=== PATIENT | female | born 1995 | race Caucasian/White ===

== ENCOUNTER 2024-08-19 15:40 | Observation (INO) | payer OTHER, SELFPAY ==
[2024-08-19] VITALS (8 sets, daily range): BP systolic 100–125; BP diastolic 59–77; BMI 27.4
[2024-08-19] MEDS: NSS 1000 IV ×2 (12:30→17:03)
[2024-08-19] MEDS: ZOFRAN 4 MG IV ×3 (12:30→18:12)
[2024-08-19] MEDS: MORPHINE SULFATE 4 MG IV (12:30)
--- NOTE | 2024-08-19 12:40 | ED.GENMED ---
History of Present Illness
General
Chief Complaint: Abdominal Symptoms
Source: patient
Exam Limitations: none
Time Seen by Provider: 08/19/24 11:44
Nursing documentation reviewed up to this point in time: agreed with
History of Present Illness
History of Present Illness:
29 y/o F with no sig pmh
here with abd cramping and diarrhea that started 4 days ago and had 2-3 days of 3-4 episodes of dairrhea with abd cramps
then last night she started vomiting
vomited x 7 total
feels dehydrated, has pain, mostly RLQ
called her PCP and sent over to r/o appe
no blood in vomit or stool
she did have subjective fevers initially which resolved
she has not had recent travel or antibiotics
Past History
Past History
ED Past Medical History: None
ED Past Surgical History: None
Social History
Tobacco: Non-smoker
Alcohol: None
Drug: None
Personal:
Living: with family
Review of Systems
Review of Systems
Allergies reviewed?: Yes
All Other Systems: Not applicable
Phy Exam
Physical Exam
Physical Exam:
GENERAL: Alert ,uncomfortable
EYE: pupils equal and reactive
NECK: Supple
ENT: o/p clr, mmm.
CARDIAC: Regular rate and rhythm .
LUNGS: Clear breath sounds bilaterally, no acute respiratory distress, no wheezes/rales/rhonchi
ABDOMEN: Soft, modertae tenderness RLQ/lower abdomen with mild voluntary guarding, no rebound
NEUROLOGICAL: Alert and oriented, no focal neuro deficits
SKIN: Warm and dry, skin intact.
MUSCULOSKELETAL: No edema, well perfused. neg luigi's sign
PSYCH: Normal and appropriate interaction.
Course
Orders/Labs/Results
Orders:
Orders
08/19/24 12:10
0.9% Sodium Chloride 1000 ml [Nss] 1,000 ml IV BOLUS
Morphine Sulfate 4 mg IV NOW STA
Ondansetron Injectable [Zofran] 4 mg IV NOW STA
08/19/24 12:11
CT Abd/Pel (IV only)-DH only Urgent
Comment:
Reason For Exam: RLQ pain, n/v/d eval appe
Test Result ONCE
08/19/24 12:35
Complete Blood Count/With Diff Urgent
Comprehensive Metabolic Panel Urgent
HCG, Serum Qualitative Screen Urgent
Lipase Urgent
Urinalysis Reflex To Culture Urgent
Date Specimen was Collected: 08/19/24
Time Specimen was Collected: 12:22
08/19/24 14:45
HYDROmorphone [Dilaudid] 0.5 mg IV NOW STA
Ondansetron Injectable [Zofran] 4 mg IV NOW STA
08/19/24 14:49
STOOL [C difficile Antigen & Toxins] Urgent
SUZANNA Source: Feces/Stool
Specimen Description:
Stool Culture Urgent
SUZANNA Source: Feces/Stool
Specimen Description:
Abnormal Lab Results
08/19/24
12:35
MCH 31.5 H pg
(27.0-31.0)
Absolute Monos (auto) 0.8 H 10^3/uL
(0.1-0.6)
Monocytes % 11.1 H %
(1.7-9.3)
Chloride 110 H mmol/L
(98-107)
08/19/24 12:35
08/19/24 12:35
Vital Signs
Initial and Last Documented VS:
Initial Vital Signs
Temp Pulse Resp BP Pulse Ox
36.7 C 77 16 112/77 98
08/19/24 10:42 08/19/24 10:42 08/19/24 10:42 08/19/24 10:42 08/19/24 10:42
Last Documented Vital Signs
Temp Pulse Resp BP Pulse Ox
36.7 C 53 16 100/59 99
08/19/24 10:42 08/19/24 13:23 08/19/24 10:42 08/19/24 13:00 08/19/24 13:30
MDM/Problems Addressed
Differential Diagnosis Includes:
enteritis; appendicitis
MDM/Problems Addressed:
diarrhea starting 3 days ago lasting 2 days with fever (only 3-4 episodes daily) and then started vomiting last night x 7
afebrile, stable vitals, pretty localized severe RLQ tendenress; wbc normal
no rf for infectious diarrhea
ct shows severely thickened small bowel loops in RLQ with mild mesenteric edema
pain returning, uncomfortable
infectious vs inflammatory
will order stool studies
? crohns?
admit due to pain control
Gi aware
*Critical Care Note
Total Time (30-74mins, 75-104mins- exclusive of procedures): Not Applicable
ED Attending Note
-
Portions of this chart may have been created with voice recognition software.� Occasional wrong word or��sound alike� substitutions may have occurred due to the inherent limitations of voice recognition software.
Discharge Plan
Departure
Patient Disposition: Admit
Date of Disposition: 08/19/24
Time of Disposition: 14:45
Admit to: Med/Surg
Presentation/result/management discussed w/ accepting MD/DO: Hospitalist
Condition: Fair
Covid-19: Not Applicable
Discharge Problem:
Enteritis
Referrals:
Carmencita Chang DO [Family Provider, Internal Medicine]
Interventions
Interventions:
*Risk Screen - Suicide Last Done: 08/19/24 12:41
*General Assessment Last Done: 08/19/24 12:41
*Neglect/Abuse Screening Last Done: 08/19/24 12:41
*ED- Fall Risk Assessment Last Done: 08/19/24 12:41
*ED COVID-19 Vaccine History Last Done: 08/19/24 12:41
WA-Jtemdu-Ryzytomzwx Assessment Last Done: 08/19/24 12:41
Discharge Date and Time
Print Language: ARGENTINE
[2024-08-19 12:48] LABS: % Basophils 0.4 % (0-2); % Eosinophils 3.4 % (0-6); % Immature Granulocytes 0.1 % (0-0.5); % Lymphocytes 21.7 % (20.5-51.1); % Monocytes 11.1 % (1.7-9.3); % Neutrophils 63.3 % (42.2-75.2); Absolute Eosinophils 0.3 10^3/uL (0-0.7); Absolute Lymphocytes 1.6 10^3/uL (1.2-3.4); Absolute Monocytes 0.8 10^3/uL (0.1-0.6); Absolute Neutrophils 4.8 10^3/uL (1.4-6.5); Hemoglobin 13.4 g/dL (12.0-16.0); Mean Corp Hgb Conc. 35.3 g/dL (33.0-37.0); Mean Corpuscular Hgb 31.5 pg (27.0-31.0); Mean Corpuscular Volume 89.4 fL (81.0-99.0); Mean Platelet Volume 9.7 fL (7.4-10.4); Nucleated Red Blood Cells % 0 %; Platelet Count 248 10^3/uL (130-400); Red Blood Cell Count 4.25 10^6/uL (4.20-5.40); Red Cell Dist. Width 11.9 % (11.5-14.5); Urine Albumin Negative (Neg - Trace); Urine Bilirubin Negative (Negative); Urine Character Clear (Clear); Urine Color Yellow; Urine Glucose Negative (Negative); Urine Ketone Negative (Negative); Urine Leukocyte Negative (Negative); Urine Nitrite Negative (Negative); Urine Occult Blood Negative (Negative); Urine Urobilinogen Negative (Neg - 1+); White Blood Cell Count 7.6 10^3/uL (4.8-10.8)
[2024-08-19 13:12] LABS: ALT (SGPT) 17 U/L (0-35); AST (SGOT) 15 U/L (14-36); Alkaline Phosphatase 41 U/L (38-126); Blood Urea Nitrogen 9 mg/dl (7-17); Calcium 9.1 mg/dl (8.4-10.2); Carbon Dioxide 24 mmol/L (22-30); Chloride 110 mmol/L (98-107); Estimated Creatinine Clearance 113 ml/min; Glucose 94 mg/dl (70-99); Potassium 4.1 mmol/L (3.5-5.1); Sodium 139 mmol/L (135-145); Total Bilirubin 0.4 mg/dl (0.2-1.3); Total Protein 6.3 g/dl (6.3-8.2); eGFR > 60.00
[2024-08-19 13:17] LABS: HCG, Serum Qualitative Screen Negative
[2024-08-19 13:25] LABS: Lipase 67 U/L (23-300)
[2024-08-19] MEDS: DILAUDID 0.5 MG IV (14:49)
--- NOTE | 2024-08-19 14:52 | HPS.HSE ---
Family Physician
-
Family Physician: Carmencita Chang
Chief Complaint
-
abdominal symptoms
History of Present Illness
Patient is a 29-year-old female with no significant past medical history who presented to [facility] ED for evaluation of abdominal pain, nausea, vomiting and diarrhea. Patient reports that abdominal pain started on Thursday evening with nausea and
diarrhea. Diarrhea was persistent Thursday - Thursday and she has had no bowel movement at all since Thursday. She reports that yesterday is when the vomiting started and lasted all day. Has not had any diarrhea or vomiting today but has been
nauseous. Patient reports intermittent subjective fevers with chills and diaphoresis. She denies any chest pain, cough, shortness of breath or urinary symptoms.
Medical History
Past Medical History
Past Medical History: Reports None
Past Surgical History: Reports None
Social History
Tobacco: Non-smoker
Alcohol: Occasional (socially )
Drug: None
Personal:
Living: With Family
Employment: Employed
Family History
Family History: Other (Father (): metastatic prostate cancer )
Allergies / Home Medications
Allergies reflects when Allergies were last updated in [employer].
Home Medications with original date entered in [employer]
Allergy/Medication List:
Allergies
Allergy/AdvReac Type Severity Reaction Status Date / Time
gluten Allergy intolerant Verified 08/19/24 10:42
Home Medications
No Meds [No Current Medications] 08/19/24
Review of Systems
-
History Source: Patient
Constitutional: Reports Fever and Chills
Abdomen/GI: Reports Abdominal Pain, Nausea, Vomiting and Diarrhea
Physical Exam
Vital Signs
Vital Signs
Temp Pulse Resp BP Pulse Ox
98.1 F 53 16 100/59 99
08/19/24 10:42 08/19/24 13:23 08/19/24 10:42 08/19/24 13:00 08/19/24 13:30
Physical Exam
General: Well Developed, Well Nourished, No Apparent Distress and Conversant
HEENT: NormoCephalic, Moist mucous membranes and Atraumatic
Respiratory: Clear
Cardiac: S1/S2 and Regular Rhythm
Breast: Deferred by me
GI: Soft, Non Distended, Tender (moderate tenderness to RLQ with palpation) and Other (hypoactive bowel sounds )
Rectal: Deferred by Provider
Genito-urinary: Deferred by me
Musculoskeletal: No Clubbing, No Cyanosis and No Edema
Skin: Warm and Dry
Neuro: Awake, Alert, AO x 3 and Nonfocal/grossly intact
Psych: Calm and Intact Judgment/Insight
Laboratory Results
-
08/19/24 12:35
08/19/24 12:35
Laboratory Results
Total Bilirubin 0.4 mg/dl (0.2-1.3) 08/19/24 12:35
AST 15 U/L (14-36) 08/19/24 12:35
ALT 17 U/L (0-35) 08/19/24 12:35
Alkaline Phosphatase 41 U/L (38-126) 08/19/24 12:35
Lipase 67 U/L (23-300) 08/19/24 12:35
Data Reviewed
-
CT Scan: Report Reviewed by me (Abd/Pel: 1. Several thickened/inflamed small bowel obstruction the right lower quadrant with mild mesenteric edema and small amount of free fluid within the pelvis. Findings compatible with infectious or
inflammatory enteritis. Questionable haustra thickening within the ascending and transverse co)
Lab Data: Labs Reviewed by me
Impression/Plan
-
IMPRESSION/PLAN:
#nausea, vomiting, diarrhea with RLQ abdominal pain likely 2/2 viral enteritis
Abd/Pel CT: 1. Several thickened/inflamed small bowel loops in the right lower quadrant with mild mesenteric edema and small amount of free fluid within the pelvis. Findings compatible with
infectious or inflammatory enteritis.
2. Unremarkable appendix.
3. Additional findings above.
- Admit to med/surg
- IVF
- supportive care
- clear liquid diet advance as tolerated
Code status: full code
DVT prophylaxis: Lovenox sq
--- NOTE | 2024-08-19 15:29 | W.PN.UPDATE ---
Update Note
Progress Note Update
This is an addendum to H&P written by Mercedes Márquez on 08/19/2024. Patient seen and examined independently with [employer].
29-year-old female without medical history presenting with abdominal cramping and diarrhea 4 days ago now improved with vomiting last night. Had oysters 5 days ago. Right lower quadrant abdominal pain. Labs normal. CT abdomen pelvis shows severe
thickened/inflamed small bowel loops in the right lower quadrant with mild mesenteric edema and small amount of free fluid.
Presentation consistent with infectious enteritis. Clear liquid diet, IV fluids, check stool culture, norovirus, C. difficile.
--- NOTE | 2024-08-19 15:49 | CON.GI ---
Addendum entered and electronically signed by Sendy Christine MD 08/20/24 10:33:
Correction to my note below
The PA's note was reviewed and I agree with the note.
Original Note:
Consultation
-
Date/Time Consultation Requested: 08/19/24 1520
Date/Time Consultation Performed: 08/19/24 1600
Requesting Provider: Dr. Mendez
Performing Provider: Dr Christine / Arely Clifton PA-C
Reason for Consultation: diarrhea, abdominal pain
Medical History
Chief Complaint / HPI
Chief Complaint: abdominal pain, diarrhea
History of Present Illness:
This is a 29 year old female in good health who presented to the ER with complaints of diarrhea, nausea, subjective fever and chills which started 4 days ago. Diarrhea described as loose, non-bloody, was occurring up to 5 times/day. She had eaten
oysters the day before. No sick contacts, travel or recent antibiotics. Last night started vomiting. Pain worsened today. She is not able to eat anything due to abdominal pain, worse in the right lower quadrant. Her PCP advised her to come to the ER
to rule out appendicitis. Labs are unremarkable, with no leukocytosis. CT imaging shows 'several thickened/inflamed small bowel loops in the right lower quadrant with mild mesenteric edema and small amount of free fluid within the pelvis. Findings
compatible with infectious or inflammatory enteritis.' Appendix is unremarkable. Patient states her baseline bowel habits were 'pretty regular,' with formed bowel movements 1-2x daily, but also notes that she had been having some mildly increased
diarrhea for the past 6 months. She did admit to some dietary changes, states she started on the [employer]iv[employer] diet in March which did cause diarrhea. She did stop that diet and now eating whole foods. There is no family history of IBD.
Past Medical History
Past Medical History: None
Past Surgical History: None
Social History
Tobacco: Other (occasionally smokes)
Alcohol: Occasional
Drug: None
Personal:
Living: With Family
Employment: Employed
Family History
Family History: Reviewed & Not Pertinent (no family history of inflammatory bowel disease or GI malignancies)
Allergies / Home Medications
Allergy/AdvReac Type Severity Reaction Status Date / Time
gluten Allergy intolerant Verified 08/19/24 10:42
�Medication �Instructions �Recorded
No Meds [No Current Medications] 08/19/24
Review of Systems
-
History Source: Patient
All other systems: A 12 pt ROS was Negative except as stated above in HPI
Vital Signs
Temp Pulse Resp BP Pulse Ox
98.1 F 53 16 100/59 99
08/19/24 10:42 08/19/24 13:23 08/19/24 10:42 08/19/24 13:00 08/19/24 13:30
Physical Exam
Exam
General: Well Developed, Well Nourished and No Apparent Distress
Respiratory: Clear
Cardiac: Regular Rhythm
GI: Soft, Non Distended, Normal Bowel Sounds and Tender (+moderate tenderness of the RLQ)
Skin: Warm and Dry
Neuro: AO x 3
Psych: Calm
Results
WBC 7.6 10^3/uL (4.8-10.8) 08/19/24 12:35
Hgb 13.4 g/dL (12.0-16.0) 08/19/24 12:35
Hct 38.0 % (37.0-47.0) 08/19/24 12:35
MCV 89.4 fL (81.0-99.0) 08/19/24 12:35
Plt Count 248 10^3/uL (130-400) 08/19/24 12:35
Absolute Neuts (auto) 4.8 10^3/uL (1.4-6.5) 08/19/24 12:35
Sodium 139 mmol/L (135-145) 08/19/24 12:35
Potassium 4.1 mmol/L (3.5-5.1) 08/19/24 12:35
Chloride 110 mmol/L (98-107) H 08/19/24 12:35
Carbon Dioxide 24 mmol/L (22-30) 08/19/24 12:35
BUN 9 mg/dl (7-17) 08/19/24 12:35
Creatinine 0.7 mg/dL (0.6-1.0) 08/19/24 12:35
Calcium 9.1 mg/dl (8.4-10.2) 08/19/24 12:35
Total Bilirubin 0.4 mg/dl (0.2-1.3) 08/19/24 12:35
AST 15 U/L (14-36) 08/19/24 12:35
ALT 17 U/L (0-35) 08/19/24 12:35
Alkaline Phosphatase 41 U/L (38-126) 08/19/24 12:35
Lipase 67 U/L (23-300) 08/19/24 12:35
Diagnostic Image Results:
CT Abdomen/Pelvis 08/19/24:
1. Several thickened/inflamed small bowel loops in the right lower quadrant with mild mesenteric edema and small amount of free fluid within the pelvis. Findings compatible with infectious or inflammatory enteritis.
2. Unremarkable appendix
Assessment / Plan
-
29 year old female with no significant past medical history with diarrhea, nausea, vomiting and right lower quadrant abdominal pain for the past 4 days. Symptoms started after eating oysters. No sick contacts, recent travel or antibiotics. CT
abdomen/pelvis showing several thickened/inflamed small bowel loops in the right lower quadrant with mild mesenteric edema and small amount of free fluid within the pelvis, compatible with infectious or inflammatory enteritis.
IMPRESSION / PLAN:
Acute gastroenteritis - suspect infectious in nature
- stool studies to rule out infectious etiology
- continue IV fluids
- antiemetics and pain medications as per hospitalist
- OK for clear liquids as tolerated
- agree on holding antibiotics, pending stool cultures, but will consider abx starting if her symptoms worsen
We will follow.
-
-
Thank you for consultation and allowing me to participate in the patient's care. Please call the consulting [facility] GI physician during the after hours with any questions or concerns.
[2024-08-19] MEDS: MORPHINE SULFATE 2 MG IV (18:12)
[2024-08-19] MEDS: ULTRAM 50 MG PO (20:46)
[2024-08-19] MEDS: MYLICON 80 MG PO (22:18)
[2024-08-20] MEDS: NSS 1000 IV ×2 (03:12→15:24)
[2024-08-20] MEDS: ZOFRAN 4 MG IV ×2 (05:23→12:12)
[2024-08-20 06:00] VITALS: BMI 27.4
[2024-08-20 07:00] VITALS: BP 103/60
[2024-08-20 07:17] LABS: Blood Urea Nitrogen 8 mg/dl (7-17); Calcium 8.6 mg/dl (8.4-10.2); Carbon Dioxide 24 mmol/L (22-30); Chloride 109 mmol/L (98-107); Estimated Creatinine Clearance 113 ml/min; Glucose 90 mg/dl (70-99); Potassium 4.3 mmol/L (3.5-5.1); Sodium 138 mmol/L (135-145); eGFR > 60.00
--- NOTE | 2024-08-20 07:33 | W.PN.HOSP.TC ---
Today's Communication/Plan
-
Start antibiotics
Assessment / Plan
Assessment / Plan
Impression:
29-year-old female without medical history presenting with abdominal cramping and diarrhea 4 days ago now improved with vomiting last night. Had oysters 5 days ago. Right lower quadrant abdominal pain. Labs normal. CT abdomen pelvis shows severe
thickened/inflamed small bowel loops in the right lower quadrant with mild mesenteric edema and small amount of free fluid.
Presentation consistent with infectious enteritis. Clear liquid diet, IV fluids, check stool culture, norovirus, C. difficile came back negative.
Assessment/plan:
Acute gastroenteritis.
CT scan shows: 1. Several thickened/inflamed small bowel loops in the right lower quadrant with mild mesenteric edema and small amount of free fluid within the pelvis. Findings compatible with
infectious or inflammatory enteritis.
2. Unremarkable appendix.
3. Additional findings above.
Appreciate GI input.
Continue IV fluid.
No further diarrhea.
GI recommending start antibiotic in form of Levaquin and Flagyl
CODE STATUS: Full code
DVT prophylaxis: Lovenox
Diet: clear diet
Family communication: Discussed with family at bedside
Disposition: Start antibiotic
Total time spent on today's encounter was 65 minutes which included time spent in counseling the patient/family regarding diagnosis and treatment plan as listed above, goals of care, and symptom management. Case was discussed with nursing staff,
specialists, and care coordinators/case management. All labs and imaging personally reviewed by me. Remainder the time spent in detailed review of previous records, lab data, imaging, and other medical provider documentation.
Anticipated Discharge: Within 24 hours
Subjective/Interval History
-
Date of Service: August 20, 2024
Patient seen and examined at bedside, family at bedside.
Still complaining of pain and spasm.
GI recommending to start antibiotic in form of Levaquin and Flagyl.
Objective Data
-
Labs:
Laboratory Results
08/20/24
06:44
Sodium 138
Potassium 4.3
Chloride 109 H
Carbon Dioxide 24
BUN 8
Creatinine 0.7
Glucose 90
Calcium 8.6
Vital Signs:
Vital Signs
Temp Pulse Resp BP Pulse Ox
97.9 F 58 14 106/62 96
08/19/24 23:29 08/19/24 23:29 08/19/24 23:29 08/19/24 23:29 08/19/24 23:29
I&O
08/19/24 08/20/24 08/21/24
06:59 06:59 06:59
Intake Total 1320 / 1320
Balance 1320 / 1320
Physical Exam
-
General: Well Developed, Well Nourished, No Apparent Distress and Comfortable
HEENT: Normocephalic, Atraumatic, Moist Mucous Membranes, No Ptosis, PERRLA and Nose Appears Normal
Respiratory: Clear to Auscultation and Non Labored Respirations
Cardiac: Regular Rhythm and S1/S2
Breast: Deferred by me
GI: Nondistended, Normal Bowel Sounds and Tender
Genito-urinary: No Costovertebral Tender
Musculoskeletal: No Clubbing, No Cyanosis and No Edema
Skin: Warm
Neuro: Awake, Alert, Oriented, AO x 3 and No Motor Deficits
Psych: Calm
Data Reviewed
-
Diagnostic Radiology: Image personally visualized and interpreted and Report Reviewed by me
CT Scan: Image personally visualized and interpreted and Report Reviewed by me
Ultrasound: Image personally visualized and interpreted and Report Reviewed by me
MRI: Image personally visualized and interpreted and Report Reviewed by me
Medical Tests (Nuc Med, Echo etc): Image personally visualized and interpreted and Report Reviewed by me
Labs: Labs Reviewed by me
Old Records: Reviewed
[2024-08-20] MEDS: ULTRAM 50 MG PO (08:10)
--- NOTE | 2024-08-20 10:01 | W.PN.GI.CBS2 ---
Today's Communication / Plan
-
will start abx
CLD as tolerated
Assessment / Plan
-
29 year old female with no significant past medical history with diarrhea, nausea, vomiting and right lower quadrant abdominal pain for the past 4 days. Symptoms started after eating oysters. No sick contacts, recent travel or antibiotics. CT
abdomen/pelvis showing several thickened/inflamed small bowel loops in the right lower quadrant with mild mesenteric edema and small amount of free fluid within the pelvis, compatible with infectious or inflammatory enteritis.
IMPRESSION / PLAN:
acute onset of right lower quadrant abdominal pain with multiple episodes of diarrhea, nausea and vomiting most likely related to infectious etiology there is evidence of enteritis on CT doubt IBD given acute onset of symptoms
Stool cultures are pending
She had worsening pain with nausea vomiting last night worried about possible developing partial small bowel obstruction related to significant inflammation
Continue clear liquids as tolerated will hold on advancing diet for now
We also start her on antibiotics with levofloxacin and Flagyl pending stool cultures
Will also get CRP
discussed with Dr. Jama will also get a KUB later today
Will need repeat CT versus CTE in a couple of weeks to check for resolution and if not improved will need a colonoscopy to rule out Crohn's
Subjective
Subjective
Date of Service: August 20, 2024
She had severe pain 9/10 last night and could not pass flatus and felt bloated. She did take some Gas-X and felt slightly better she also received morphine but she says that she felt more nauseous with that, she did have an episode of vomiting also
last night. Remains afebrile
Objective
Data Reviewed
Laboratory Data:
Laboratory Results
08/19/24 12:35
08/20/24 06:44
Laboratory Results
Total Bilirubin 0.4 mg/dl (0.2-1.3) 08/19/24 12:35
AST 15 U/L (14-36) 08/19/24 12:35
ALT 17 U/L (0-35) 08/19/24 12:35
Alkaline Phosphatase 41 U/L (38-126) 08/19/24 12:35
Lipase 67 U/L (23-300) 08/19/24 12:35
Vital Signs and I&O:
Vital Signs
Temp Pulse Resp BP Pulse Ox
98.4 F 60 16 103/60 96
08/20/24 07:00 08/20/24 07:00 08/20/24 07:00 08/20/24 07:00 08/20/24 07:00
I&O
08/19/24 08/20/24 08/21/24
06:59 06:59 06:59
Intake Total 1320 / 1320
Balance 1320 / 1320
Physical Exam
Physical Exam
Cardiology: Normal Sinus Rhythm
Pulmonary: Clear
GI: Soft, Non Distended, Tender (in RLQ) and Normal Bowel Sounds
[2024-08-20] MEDS: FLAGYL 500 MG 100 IV ×2 (10:32→17:22)
[2024-08-20] MEDS: BENTYL 10 MG PO ×3 (12:14→21:29)
[2024-08-20] MEDS: LEVAQUIN 100 IV (12:14)
--- NOTE | 2024-08-20 12:59 | CM ---
Patient seen at bedside.
IA completed
OBS status-form explained & signed. In chart
Lives in a 2 story home with , 3 steps to enter, flight to bedroom
PLOF: independent
Denies DME
Denies VN/Rehab
Denies insecurities
PCP: Carmencita Chang
Pharmacy: [facility] [address], [place]
PLAN: home, no needs
[2024-08-20 15:00] VITALS: BP 99/60
[2024-08-20] MEDS: TYLENOL 650 MG PO (17:29)
[2024-08-20 23:38] VITALS: BP 99/62
[2024-08-21] MEDS: NSS IV (02:02)
[2024-08-21] MEDS: FLAGYL 500 MG 100 IV ×2 (02:58→11:13)
[2024-08-21] MEDS: MYLICON 80 MG PO (05:53)
[2024-08-21 05:56] LABS: Hemoglobin 11.8 g/dL (12.0-16.0); Mean Corp Hgb Conc. 34.7 g/dL (33.0-37.0); Mean Corpuscular Hgb 31.7 pg (27.0-31.0); Mean Corpuscular Volume 91.4 fL (81.0-99.0); Mean Platelet Volume 10.5 fL (7.4-10.4); Platelet Count 208 10^3/uL (130-400); Red Blood Cell Count 3.72 10^6/uL (4.20-5.40); Red Cell Dist. Width 11.7 % (11.5-14.5); White Blood Cell Count 5.8 10^3/uL (4.8-10.8)
[2024-08-21 06:28] LABS: Blood Urea Nitrogen 8 mg/dl (7-17); Carbon Dioxide 24 mmol/L (22-30); Chloride 110 mmol/L (98-107); Estimated Creatinine Clearance 99 ml/min; Glucose 88 mg/dl (70-99); Potassium 4.2 mmol/L (3.5-5.1); Sodium 138 mmol/L (135-145); eGFR > 60.00
[2024-08-21 07:00] VITALS: BP 102/64
[2024-08-21] MEDS: BENTYL 10 MG PO ×2 (08:18→12:43)
--- NOTE | 2024-08-21 09:07 | W.PN.GI.CBS2 ---
Today's Communication / Plan
-
LRD
MOM
Dulcolax supp
Assessment / Plan
-
29 year old female with no significant past medical history with diarrhea, nausea, vomiting and right lower quadrant abdominal pain for the past 4 days. Symptoms started after eating oysters. No sick contacts, recent travel or antibiotics. CT
abdomen/pelvis showing several thickened/inflamed small bowel loops in the right lower quadrant with mild mesenteric edema and small amount of free fluid within the pelvis, compatible with infectious or inflammatory enteritis.
IMPRESSION / PLAN:
acute onset of right lower quadrant abdominal pain with multiple episodes of diarrhea, nausea and vomiting most likely related to infectious etiology there is evidence of enteritis on CT doubt IBD given acute onset of symptoms
Stool cultures are pending, C. difficile negative
KUB 5/3 negative for obstruction1
CRP elevated at 22.9
Will give milk of magnesia and a suppository today since she feels constipated and unable to pass flatus
Will advance diet to low residue diet
Okay to DC home later today if she tolerates diet with no worsening pain
Could switch her antibiotics to oral antibiotic with Levaquin and Flagyl for 7 days if DC today
Will need repeat CT versus CTE in a couple of weeks to check for resolution and if not improved will need a colonoscopy to rule out Crohn's
discussed with Dr. Jama
also DW her mom yesterday
Subjective
Subjective
Date of Service: August 21, 2024
She had a small bowel movement yesterday which she said was hard and had to strain and a small amount of blood in the stool, abdominal pain is improving. She tolerated full liquids with no nausea or vomiting last night,
Objective
Data Reviewed
Laboratory Data:
Laboratory Tests
08/20/24
06:44
C-Reactive Protein 22.90 H
Laboratory Results
08/21/24 04:34
08/21/24 04:34
Laboratory Results
Total Bilirubin 0.4 mg/dl (0.2-1.3) 08/19/24 12:35
AST 15 U/L (14-36) 08/19/24 12:35
ALT 17 U/L (0-35) 08/19/24 12:35
Alkaline Phosphatase 41 U/L (38-126) 08/19/24 12:35
Lipase 67 U/L (23-300) 08/19/24 12:35
Vital Signs and I&O:
Vital Signs
Temp Pulse Resp BP Pulse Ox
98.2 F 48 18 102/64 98
08/21/24 07:00 08/21/24 07:00 08/21/24 07:00 08/21/24 07:00 08/21/24 07:00
I&O
08/20/24 08/21/24 08/22/24
06:59 06:59 06:59
Intake Total 1320 / 1320 1140 / 1140
Balance 1320 / 1320 1140 / 1140
Physical Exam
Physical Exam
Cardiology: Normal Sinus Rhythm
Pulmonary: Clear
GI: Soft, Non Distended, Tender (Tender in the right lower quadrant) and Normal Bowel Sounds
[2024-08-21] MEDS: DULCOLAX 10 MG RECTAL (10:05)
[2024-08-21] MEDS: MILK OF MAGNESIA 30 ML PO (11:13)
[2024-08-21] MEDS: LEVAQUIN 100 IV (11:19)
--- NOTE | 2024-08-21 12:54 | W.PN.HOSP.TC ---
Today's Communication/Plan
-
Will be discharged home today.
Assessment / Plan
Assessment / Plan
Impression:
29-year-old female without medical history presenting with abdominal cramping and diarrhea 4 days ago now improved with vomiting last night. Had oysters 5 days ago. Right lower quadrant abdominal pain. Labs normal. CT abdomen pelvis shows severe
thickened/inflamed small bowel loops in the right lower quadrant with mild mesenteric edema and small amount of free fluid.
Presentation consistent with infectious enteritis. Clear liquid diet, IV fluids, check stool culture, norovirus, C. difficile came back negative.
GI recommending starting IV antibiotics in the form of Levaquin and Flagyl.
Advance diet to low residual diet and patient tolerated.
Will be discharged home today.
Assessment/plan:
Acute gastroenteritis.
CT scan shows: 1. Several thickened/inflamed small bowel loops in the right lower quadrant with mild mesenteric edema and small amount of free fluid within the pelvis. Findings compatible with
infectious or inflammatory enteritis.
2. Unremarkable appendix.
3. Additional findings above.
Appreciate GI input.
Continue IV fluid.
No further diarrhea.
GI recommending starting IV antibiotics in the form of Levaquin and Flagyl.
Advanced diet to low residual diet and patient tolerated.
Will be discharged home today.
CODE STATUS: Full code
DVT prophylaxis: Lovenox
Diet: clear diet
Family communication: Discussed with family at bedside
Disposition: Will be discharged home today.
Total time spent on today's encounter was 65 minutes which included time spent in counseling the patient/family regarding diagnosis and treatment plan as listed above, goals of care, and symptom management. Case was discussed with nursing staff,
specialists, and care coordinators/case management. All labs and imaging personally reviewed by me. Remainder the time spent in detailed review of previous records, lab data, imaging, and other medical provider documentation.
Anticipated Discharge: Today
Subjective/Interval History
-
Date of Service: August 21, 2024
Patient seen and examined at bedside, was having constipation in the morning which improved with Dulcolax suppository and milk of magnesia.
Denies any chest pain or shortness of breath, advance diet and can be discharged home if tolerates.
Objective Data
-
Labs:
Laboratory Results
08/21/24
04:34
WBC 5.8
Hgb 11.8 L
Hct 34.0 L
Plt Count 208
Sodium 138
Potassium 4.2
Chloride 110 H
Carbon Dioxide 24
BUN 8
Creatinine 0.8
Glucose 88
Calcium 9.0
Vital Signs:
Vital Signs
Temp Pulse Resp BP Pulse Ox
98.2 F 48 18 102/64 98
08/21/24 07:00 08/21/24 07:00 08/21/24 07:00 08/21/24 07:00 08/21/24 07:00
I&O
08/20/24 08/21/24 08/22/24
06:59 06:59 06:59
Intake Total 1320 / 1320 1140 / 1140
Balance 1320 / 1320 1140 / 1140
Physical Exam
-
General: Well Developed, Well Nourished, No Apparent Distress and Comfortable
HEENT: Normocephalic, Atraumatic, Moist Mucous Membranes, No Ptosis, PERRLA and Nose Appears Normal
Respiratory: Clear to Auscultation and Non Labored Respirations
Cardiac: Regular Rhythm and S1/S2
Breast: Deferred by me
GI: Nondistended, Normal Bowel Sounds and Tender
Genito-urinary: No Costovertebral Tender
Musculoskeletal: No Clubbing, No Cyanosis and No Edema
Skin: Warm
Neuro: Awake, Alert, Oriented, AO x 3 and No Motor Deficits
Psych: Calm
Data Reviewed
-
Diagnostic Radiology: Image personally visualized and interpreted and Report Reviewed by me
CT Scan: Image personally visualized and interpreted and Report Reviewed by me
Ultrasound: Image personally visualized and interpreted and Report Reviewed by me
MRI: Image personally visualized and interpreted and Report Reviewed by me
Medical Tests (Nuc Med, Echo etc): Image personally visualized and interpreted and Report Reviewed by me
Labs: Labs Reviewed by me
Old Records: Reviewed
--- NOTE | 2024-08-21 13:00 | W.DCSUMMARY ---
Discharge Summary
Discharge Data
Date of Admission: 08/19/24
Date of Discharge: 08/21/24
-
Pending Results: No
Hospital Course
Hospital course
29-year-old female without medical history presenting with abdominal cramping and diarrhea 4 days ago now improved with vomiting last night. Had oysters 5 days ago. Right lower quadrant abdominal pain. Labs normal. CT abdomen pelvis shows severe
thickened/inflamed small bowel loops in the right lower quadrant with mild mesenteric edema and small amount of free fluid.
Presentation consistent with infectious enteritis. Clear liquid diet, IV fluids, check stool culture, norovirus, C. difficile came back negative.
GI recommending starting IV antibiotics in the form of Levaquin and Flagyl.
Advance diet to low residual diet and patient tolerated.
Will be discharged home today.
During hospitalization patient was treated from the following
Acute gastroenteritis.
CT scan shows: 1. Several thickened/inflamed small bowel loops in the right lower quadrant with mild mesenteric edema and small amount of free fluid within the pelvis. Findings compatible with
infectious or inflammatory enteritis.
2. Unremarkable appendix.
3. Additional findings above.
Appreciate GI input.
Continue IV fluid.
No further diarrhea.
GI recommending starting IV antibiotics in the form of Levaquin and Flagyl.
Advanced diet to low residual diet and patient tolerated.
Will be discharged home today.
CODE STATUS: Full code
DVT prophylaxis: Lovenox
Diet: clear diet
Family communication: Discussed with family at bedside
Disposition: Will be discharged home today.
Total time spent on today's encounter was 40 minutes which included time spent in counseling the patient/family regarding diagnosis and treatment plan as listed above, goals of care, and symptom management. Case was discussed with nursing staff,
specialists, and care coordinators/case management. All labs and imaging personally reviewed by me. Remainder the time spent in detailed review of previous records, lab data, imaging, and other medical provider documentation.
Anticipated Discharge: Today
Discharge Plan
-
Patient Disposition: Home (Routine Discharge)
Discharge Diagnosis/Procedures: Acute gastroenteritis
Diet: Low Residue
Activity: As tolerated
Referrals:
Carmencita Chang DO [Family Provider, Internal Medicine]
Prescriptions:
New
acetaminophen 325 mg Tablet
650 mg PO Q4HPRN PRN (Reason: mild pain/ALFARO/temp> 100.4F) Qty: 0 0RF
levofloxacin 500 mg tablet
500 mg PO DAILY 7 Days Qty: 7 0RF
metronidazole 500 mg tablet
500 mg PO Q8H 7 Days Qty: 21 0RF
Discharge Orders:
Discharge Patient (As Directed); Ordered 08/21/24
Ordered By: Evita De León
Discharge Date and Time
Print Language: BARBADIAN
--- NOTE | 2024-08-21 13:08 | CM ---
Patient seen at bedside with
Discharge today
Home, no needs
PLAN; home, no needs
to transport
[2024-08-21 14:03] VITALS: BP 111/61
== END 2024-08-21 14:11 | disposition home or self-care (01) ==
LOC: 3 WEST ACU 15:40
PROVIDERS: Nurse Practitioner Family; Physician Assistant; ADMITTING PHYSICIAN Hospitalist; ATTENDING PHYSICIAN General Practice; EMERGENCY PHYSICIAN Student in an Organized Health Care Education/Training Program; FAMILY PHYSICIAN Internal Medicine; OTHER PHYSICIAN Internal Medicine Gastroenterology
DX: A08.4 Viral intestinal infection, unspecified (principal); R10.9 Unspecified abdominal pain
CPT/HCPCS: 74018; 74177; 80048; 80053; 81003; 83690; 84703; 85025; 85027; 86140; 87045; 87046; 87077; 87324; 87427; 87449; 96361; 96374; 96375; 96376; 99284; G0378; Q9967

== ENCOUNTER 2024-08-24 16:28 | Inpatient (IN) | payer OTHER, SELFPAY ==
[2024-08-24] VITALS (10 sets, daily range): BP systolic 95–115; BP diastolic 50–78; BMI 27.3; BMI 26.7
--- NOTE | 2024-08-24 11:17 | ED.GENMED ---
History of Present Illness
General
Chief Complaint: Abdominal Symptoms
Source: patient and records
Exam Limitations: none
Time Seen by Provider: 08/24/24 10:25
Nursing documentation reviewed up to this point in time: agreed with
History of Present Illness
History of Present Illness:
29-year-old female with no reported chronic medical issues presents to the emergency department for evaluation of continued diarrhea and abdominal discomfort in the setting of recently diagnosed enteritis; she also is complaining of occasional
palpitations. Patient was admitted to this hospital 08/19 until resented with abdominal pain and had CT which showed enteritis. Her initial presenting complaint was nausea with vomiting and abdominal pain. Nausea improved and she still had
some vague abdominal pain prior to discharge but she was ultimately sent home; she was discharged on levofloxacin and metronidazole. She did well for the first 12 hours after discharge but woke up the next day with continued pain and started with
profuse watery diarrhea; diarrhea mixed with bright red blood. She has had profuse diarrhea since then. Abdominal pain is generally improved since discharge but has not resolved. She has not had any additional vomiting. She has not had
fever�highest temperature was yesterday 100 �F. In addition to her continued GI symptoms patient says she has been having labile heart rate since discharge�she says sometimes will go as high as 150s particularly with light activity. She has had
palpitations. Denies chest pain or dizziness, shortness of breath. She denies any other complaints.
Past History
Past History
ED Past Medical History: None
ED Past Surgical History: None
Social History
Tobacco: Non-smoker
Alcohol: None
Drug: None
Personal:
Living: with family
Review of Systems
Review of Systems
All Other Systems: ROS reviewed and negative except as documented in HPI and ROS
Constitutional: Denies fever or chills
Respiratory: Denies trouble breathing
Cardiac: Reports palpitations; Denies chest pain
ABD/GI: Reports abdominal pain, nausea, diarrhea and bloody stools; Denies vomiting
: Denies flank pain
Musculoskeletal: Denies neck pain or back pain
Neurological: Denies dizzy or headache
Phy Exam
Physical Exam
Physical Exam:
General: Awake, alert, oriented x3; no acute distress
Head: Normocephalic, atraumatic
Eyes: Conjunctiva normal, sclera anicteric
Throat: Airway intact, dry mucous membranes
Neck: Trachea midline, supple without meningismus
Lungs: Clear to auscultation bilaterally, no wheezing, rales, rhonchi
Heart: Regular rate and rhythm, no murmurs, gallops, or rubs
Abd: Soft, non distended, minimally tender right upper and lower abdomen, no peritoneal sign, no masses
Back: No CVA tenderness
Neuro: No gross deficits
Skin: no rash in area of concern
Extremities: Warm well-perfused
Scores
Heart Failure Risk
Heart Failure Risk Score: Not Applicable
Heart Score for Chest Pain Patients
STEMI patient?: Not applicable
Withdrawal Assessment of Alcohol
Withdrawal Assessment Completed?: Not applicable
Course
Orders/Labs/Results
Orders:
Orders
08/24/24 11:03
Electrocardiogram (*1) Urgent
Reason for Study: Palpitations
EKG- Treatment ONCE
Test Result ONCE
08/24/24 11:06
0.9% Sodium Chloride 1000 ml [Nss] 1,000 ml IV BOLUS
08/24/24 11:19
GASTROINTESTINAL CONSULT Urgent
Consulting Provider: Sendy Christine
Was physician already notified: Yes
08/24/24 11:49
Complete Blood Count/With Diff Urgent
Comprehensive Metabolic Panel Urgent
HCG, Serum Qualitative Screen Urgent
08/24/24 13:52
Stool Culture Urgent
SUZANNA Source: Feces/Stool
Specimen Description:
08/24/24 13:56
C DIFF [C difficile Antigen & Toxins] Urgent
SUZANNA Source: Feces/Stool
Specimen Description:
08/24/24 14:15
0.9% Sodium Chloride 1000 ml [Nss] 1,000 ml IV 100 mls/hr
08/24/24 14:50
CR Obstruct Series W/pa Chest Urgent
Comment:
Reason For Exam: abdominal pain
Abnormal Lab Results
08/24/24
11:49
MCH 32.0 H pg
(27.0-31.0)
Eosinophils % 6.4 H %
(0-6)
Chloride 109 H mmol/L
(98-107)
AST 37 H U/L
(14-36)
ALT 44 H U/L
(0-35)
08/24/24 11:49
08/24/24 11:49
Vital Signs
Initial and Last Documented VS:
Initial Vital Signs
Temp Pulse Resp BP Pulse Ox
36.7 C 95 16 108/78 100
08/24/24 10:05 08/24/24 10:05 08/24/24 10:05 08/24/24 10:05 08/24/24 10:05
Last Documented Vital Signs
Temp Pulse Resp BP Pulse Ox
36.7 C 47 12 104/66 100
08/24/24 10:05 08/24/24 13:00 08/24/24 13:00 08/24/24 13:00 08/24/24 13:00
MDM/Problems Addressed
Differential Diagnosis Includes:
GI symptoms: Enteritis, colitis, appendicitis
Palpitations/tachycardia: Dehydration, dysrhythmia, PVCs
MDM/Problems Addressed:
29-year-old female who was just admitted with enteritis presents with profuse diarrhea and continued abdominal pain since discharge. She has also had occasional palpitations and labile heart rate. Vitals and exam as above. Suspect continued
symptoms from known enteritis; palpitations/tachycardia sound like they could be related to dehydration in the setting of her GI symptoms. Will plan to send labs including a CBC and a CMP, check hCG. Will check cardiogram. Provide fluids.
Monitor on telemetry. Case discussed with gastroenterology for consultation.
Labs reviewed: Fortunately hemoglobin normal, CMP no clinically significant abnormalities. hCG negative. GI consult pending.
GI evaluated the bedside�recommending admission, stool studies ordered. Hold antibiotics for now. If C. difficile positive may need colonoscopy. Order placed for obstruction series but hold on repeat CT. Case was discussed with hospitalist for
admission.
*Radiology
Radiology exam reviewed: radiology read reviewed (Reviewed radiology read from recent CT)
*Pulse Oximetry
Patient hypoxic: no
*EKG
Interpreted by ED Provider?: Yes
Heart Rate: 54
Rate: bradycardiac
Rhythm: sinus
[place]: normal axis
Interval: normal interval
QRS Pattern: normal QRS
Ischemia: no ischemia
*Critical Care Note
Total Time (30-74mins, 75-104mins- exclusive of procedures): Not Applicable
Data Reviewed
Review of Other/Old Records Reveals: Labs, Records, Progress Notes and Discharge Summary
Source: patient, records and significant other
Patient Management
Discussion with other providers: Hospitalist (Discussed with hospitalist) and [employer] (Discussed with gastroenterology)
Escalation/DeEscalation of care consider admission/obs:
Admission indicated
ED Attending Note
-
Portions of this chart may have been created with voice recognition software.� Occasional wrong word or��sound alike� substitutions may have occurred due to the inherent limitations of voice recognition software.
Discharge Plan
Departure
Patient Disposition: Admit
Date of Disposition: 08/24/24
Time of Disposition: 14:51
Admit to doctor: Kyle
Presentation/result/management discussed w/ accepting MD/DO: Hospitalist
Discharge Problem:
Enteritis, Bloody diarrhea
Prescriptions:
No Action
acetaminophen 325 mg Tablet
650 mg PO Q4HPRN PRN (Reason: mild pain/ALFARO/temp> 100.4F) Qty: 0 0RF
levofloxacin 500 mg tablet
500 mg PO DAILY 7 Days Qty: 7 0RF
metronidazole 500 mg tablet
500 mg PO Q8H 7 Days Qty: 21 0RF
Referrals:
Carmencita Chang, DO [Family Provider, Internal Medicine]
Interventions
Interventions:
*Risk Screen - Suicide Last Done: 08/24/24 11:47
*General Assessment Last Done: 08/24/24 11:47
*Neglect/Abuse Screening Last Done: 08/24/24 11:47
*ED- Fall Risk Assessment Last Done: 08/24/24 11:47
*ED COVID-19 Vaccine History Last Done: 08/24/24 11:47
XL-Fihtpj-Lbcgsuisqc Assessment Last Done: 08/24/24 12:12
Discharge Date and Time
Print Language: MALTESE
[2024-08-24] MEDS: NSS 1000 IV ×2 (11:55→14:23)
[2024-08-24 12:13] LABS: % Basophils 0.9 % (0-2); % Eosinophils 6.4 % (0-6); % Immature Granulocytes 0.1 % (0-0.5); % Lymphocytes 35.7 % (20.5-51.1); % Monocytes 6.2 % (1.7-9.3); % Neutrophils 50.7 % (42.2-75.2); Absolute Basophils 0.1 10^3/uL (0-0.2); Absolute Eosinophils 0.5 10^3/uL (0-0.7); Absolute Lymphocytes 2.8 10^3/uL (1.2-3.4); Absolute Monocytes 0.5 10^3/uL (0.1-0.6); Hematocrit 41.9 % (37.0-47.0); Hemoglobin 14.8 g/dL (12.0-16.0); Mean Corp Hgb Conc. 35.3 g/dL (33.0-37.0); Mean Corpuscular Volume 90.7 fL (81.0-99.0); Mean Platelet Volume 9.7 fL (7.4-10.4); Nucleated Red Blood Cells % 0 %; Platelet Count 342 10^3/uL (130-400); Red Blood Cell Count 4.62 10^6/uL (4.20-5.40); Red Cell Dist. Width 11.7 % (11.5-14.5); White Blood Cell Count 7.9 10^3/uL (4.8-10.8)
[2024-08-24 12:30] LABS: HCG, Serum Qualitative Screen Negative
[2024-08-24 12:43] LABS: ALT (SGPT) 44 U/L (0-35); AST (SGOT) 37 U/L (14-36); Albumin 4.7 g/dl (3.5-5.0); Alkaline Phosphatase 49 U/L (38-126); Blood Urea Nitrogen 12 mg/dl (7-17); Carbon Dioxide 25 mmol/L (22-30); Chloride 109 mmol/L (98-107); Estimated Creatinine Clearance 99 ml/min; Glucose 88 mg/dl (70-99); Potassium 4.7 mmol/L (3.5-5.1); Sodium 143 mmol/L (135-145); Total Bilirubin 0.6 mg/dl (0.2-1.3); Total Protein 7.3 g/dl (6.3-8.2); eGFR > 60.00
--- NOTE | 2024-08-24 15:41 | CM ---
CM reviewed chart and met with pt and bedside in ED. Lives with in [address] [facility], [address], 12 steps to bed/bath.
no equipment in home, no prior VN/SNF
PCP: Carmencita Chang
Pharmacy: [facility]
Plan: home, pending ongoing medical evaluation
--- NOTE | 2024-08-24 15:50 | HPS.HSE ---
Family Physician
-
Family Physician: Carmencita Chang
Chief Complaint
-
Hematochezia
History of Present Illness
29yo F with cam back after her d/c 3 days ago when managed for gastroenteritis. She was d/c on Abx, initially felt better, but then developed bloody BM with diarrhea, tachycardia and lightheadedness. Patient seen in ED by GI and recommended to have
Abx stopped and prep for Colonoscopy on 08/26/24 [facility] concern of IBS.
Medical History
Past Medical History
Past Medical History: Reports None
Past Surgical History: Reports None
Social History
Tobacco: Non-smoker
Alcohol: Occasional
Drug: None
Family History
Family History: Not pertinent
Allergies / Home Medications
Allergies reflects when Allergies were last updated in [facility].
Home Medications with original date entered in [facility]
Allergy/Medication List:
Allergies
Allergy/AdvReac Type Severity Reaction Status Date / Time
gluten Allergy intolerant Verified 08/24/24 10:08
Home Medications
Lactobac no.2-Bifidobac no.1-S. thermo 112.5 billion cell capsule (Visbiome) 1 cap PO DAILY Supplement 08/24/24
ascorbic acid 30 mg-collagen, hydrolyzed 833.3 mg tablet (Collagen Skin Renewal) 1 tab PO DAILY Supplement 08/24/24
ashwagandha extract 120 mg capsule 120 mg PO DAILY Supplement 08/24/24
levofloxacin 500 mg tablet 500 mg PO DAILY Infection 08/24/24
metronidazole 500 mg tablet 500 mg PO Q8H Infection 08/24/24
Review of Systems
-
A 12 point ROS was completed and negative except as noted: Yes
Cardiac: Reports Palpitations
Abdomen/GI: Reports See HPI
Physical Exam
Vital Signs
Vital Signs
Temp Pulse Resp BP Pulse Ox
98.1 F 50 14 115/72 100
08/24/24 10:05 08/24/24 15:00 08/24/24 15:00 08/24/24 15:00 08/24/24 14:00
Physical Exam
General: Well Developed, Well Nourished and No Apparent Distress
HEENT: NormoCephalic, Anicteric and Moist mucous membranes
Respiratory: Clear; No Wheezes or Crackles
Cardiac: S1/S2 and Regular Rhythm
GI: Soft, Non Distended and Tender (mild diffuse)
Genito-urinary: No costovertebral tender
Musculoskeletal: No Clubbing, No Cyanosis and No Edema
Skin: Warm; No Rash or Jaundice
Neuro: Awake, Alert, Oriented and AO x 3
Psych: Calm
Laboratory Results
-
08/24/24 11:49
08/24/24 11:49
Laboratory Results
Total Bilirubin 0.6 mg/dl (0.2-1.3) 08/24/24 11:49
AST 37 U/L (14-36) H 08/24/24 11:49
ALT 44 U/L (0-35) H 08/24/24 11:49
Alkaline Phosphatase 49 U/L (38-126) 08/24/24 11:49
Data Reviewed
-
Lab Data: Labs Reviewed by me
Impression/Plan
-
A/P:
#Abdominal pain, hematochezia, diarrhea
Repeat stool Cx, C.diff, WBC, calprotectin
GI consult
PPI
hold Abx as previous Cx neg
follow CBC
#Transaminitis
Probably 2/2 Abx
follow LFT
DVT ppx SCDs (2/2 hematochezia)
Full code
I have spent at least 58min admitting the patient
--- NOTE | 2024-08-24 16:09 | CON.GI ---
Consultation
-
Date/Time Consultation Requested: 08/24/24
Date/Time Consultation Performed: 08/24/24
Requesting Provider:
Performing Provider:
Reason for Consultation: rectal bleeding and diarrhea
Medical History
Chief Complaint / HPI
Chief Complaint: rectal bleeding with diarrhea
History of Present Illness:
This is a very pleasant 29-year-old female with no significant past medical history who was recently admitted on 08/19/2024 with symptoms of abdominal pain predominantly in the right lower quadrant with diarrhea and CT during that admission 08/19/2024
showed enteritis with mild mesenteric edema and small amount of free fluid within the pelvis compatible with infectious or inflammatory enteritis. She was initially started on IV hydration and pain persisted so was started empirically on
antibiotics since she had eaten oysters a couple days prior to that and stool studies were pending. She was also presenting with symptoms of partial small bowel obstruction related to inflammation and initially was unable to pass flatus or have a
bowel movement and subsequently received a suppository and milk of magnesia and was able to have a bowel movement and felt better and was discharged home on Thursday08/21/2024. She says that on Thursday she started to develop diarrhea again and also was
noticing blood in the stool and persisted so presented to the emergency room today and she was also feeling weak and dizzy. Her abdominal pain though has improved. No nausea or vomiting. No fevers or chills. Her stool studies during her recent
admission were negative for cultures, C. difficile negative, yersenia also negative. She had an obstruction series from today which showed no evidence of obstruction.
Past Medical History
Past Medical History: Other (recent enteritis 08/19/24)
Past Surgical History: None
Social History
Tobacco: Other (Occasionally smokes)
Alcohol: Occasional
Drug: None
Personal:
Living: With Family
Employment: Other (Pediatric PT)
Family History
Family History: Other (No history of celiac or IBD or colon cancer in the family)
Allergies / Home Medications
Allergy/AdvReac Type Severity Reaction Status Date / Time
gluten Allergy intolerant Verified 08/24/24 10:08
�Medication �Instructions �Recorded
Lactobac no.2-Bifidobac no.1-S. 1 cap PO DAILY Supplement 08/24/24
thermo 112.5 billion cell capsule
(Visbiome)
ascorbic acid 30 mg-collagen, 1 tab PO DAILY Supplement 08/24/24
hydrolyzed 833.3 mg tablet
(Collagen Skin Renewal)
ashwagandha extract 120 mg capsule 120 mg PO DAILY Supplement 08/24/24
levofloxacin 500 mg tablet 500 mg PO DAILY Infection 08/24/24
metronidazole 500 mg tablet 500 mg PO Q8H Infection 08/24/24
Review of Systems
-
All other systems: A 12 pt ROS was Negative except as stated above in HPI
Vital Signs
Temp Pulse Resp BP Pulse Ox
98.1 F 50 14 115/72 100
08/24/24 10:05 08/24/24 15:00 08/24/24 15:00 08/24/24 15:00 08/24/24 14:00
Physical Exam
Exam
General: No Apparent Distress
HEENT: Normocephalic
Respiratory: Clear
Cardiac: S1/S2 and Regular Rhythm
GI: Soft, Non Distended, Normal Bowel Sounds and Tender (in RLQ)
Musculoskeletal: No Clubbing
Skin: Warm
Neuro: Awake, Alert and Oriented
Psych: Calm
Results
WBC 7.9 10^3/uL (4.8-10.8) 08/24/24 11:49
Hgb 14.8 g/dL (12.0-16.0) D 08/24/24 11:49
Hct 41.9 % (37.0-47.0) 08/24/24 11:49
MCV 90.7 fL (81.0-99.0) 08/24/24 11:49
Plt Count 342 10^3/uL (130-400) D 08/24/24 11:49
Absolute Neuts (auto) 4.0 10^3/uL (1.4-6.5) 08/24/24 11:49
Sodium 143 mmol/L (135-145) 08/24/24 11:49
Potassium 4.7 mmol/L (3.5-5.1) 08/24/24 11:49
Chloride 109 mmol/L (98-107) H 08/24/24 11:49
Carbon Dioxide 25 mmol/L (22-30) 08/24/24 11:49
BUN 12 mg/dl (7-17) 08/24/24 11:49
Creatinine 0.8 mg/dL (0.6-1.0) 08/24/24 11:49
Calcium 10.0 mg/dl (8.4-10.2) 08/24/24 11:49
Total Bilirubin 0.6 mg/dl (0.2-1.3) 08/24/24 11:49
AST 37 U/L (14-36) H 08/24/24 11:49
ALT 44 U/L (0-35) H 08/24/24 11:49
Alkaline Phosphatase 49 U/L (38-126) 08/24/24 11:49
Diagnostic Image Results:
08/24/24 obstruction series
IMPRESSION: No evidence of active cardiopulmonary disease.
No radiographic evidence for obstruction or free intraperitoneal air.
08/19/24 CT Abd/Pel (IV only)
Several thickened/inflamed small bowel loops in the right lower quadrant with mild mesenteric edema and small amount of free fluid within the pelvis. Findings compatible with infectious or inflammatory enteritis. Questionable thickening of the
proximal ascending colon and transverse colon. Unremarkable appendix.
Prior GI Procedures:
EGD: none
Colonoscopy: none
Assessment / Plan
-
1. Diarrhea with rectal bleeding with recent admission for enteritis was treated with antibiotics pending stool cultures for presumed infectious enteritis. Will check stool for C. difficile her recent stool tests from recent admission cultures
were negative, C. difficile is negative and also negative for Yersinia. If the repeat C. difficile comes back negative and she has persistent symptoms we will schedule her for a colonoscopy on Thursday to rule out Crohn's ileocolitis. Will
discontinue Levaquin and Flagyl for now. continue IV hydration, okay for low residue diet today will give her clear liquids tomorrow to prep for possible colonoscopy Thursday. She was having dizziness and weakness most likely related to diarrhea with
dehydration. Her hemoglobin was normal. Her CRP was 22.9 on 08/20/2024
Mildly elevated AST and ALT, her AST and ALT during her recent admission on 08/19/2024 were normal it may be related to dehydration and low flow state will repeat in a.m.
Data Reviewed
-
CT Scan: Report Reviewed by me
-
-
Thank you for consultation and allowing me to participate in the patient's care. Please call the head [facility] professional GI physician during the after hours with any questions or concerns.
--- NOTE | 2024-08-24 17:00 | PTCARENOTE ---
Patient admitted in to room 421. AAOx3, VSS. Able to make needs known. IVF infusing. Awaiting stool sample.
[2024-08-25] MEDS: LR 1000 IV ×2 (00:12→07:50)
[2024-08-25 07:05] VITALS: BP 96/58
[2024-08-25 07:36] LABS: % Basophils 1.2 % (0-2); % Eosinophils 8.4 % (0-6); % Immature Granulocytes 0.4 % (0-0.5); % Lymphocytes 33.5 % (20.5-51.1); % Neutrophils 48.5 % (42.2-75.2); Absolute Basophils 0.1 10^3/uL (0-0.2); Absolute Eosinophils 0.6 10^3/uL (0-0.7); Absolute Lymphocytes 2.6 10^3/uL (1.2-3.4); Absolute Monocytes 0.6 10^3/uL (0.1-0.6); Absolute Neutrophils 3.7 10^3/uL (1.4-6.5); Hematocrit 36.8 % (37.0-47.0); Mean Corp Hgb Conc. 35.3 g/dL (33.0-37.0); Mean Corpuscular Volume 90.6 fL (81.0-99.0); Nucleated Red Blood Cells % 0 %; Platelet Count 294 10^3/uL (130-400); Red Blood Cell Count 4.06 10^6/uL (4.20-5.40); Red Cell Dist. Width 11.7 % (11.5-14.5); White Blood Cell Count 7.6 10^3/uL (4.8-10.8)
[2024-08-25 08:35] LABS: ALT (SGPT) 38 U/L (0-35); AST (SGOT) 31 U/L (14-36); Albumin 3.5 g/dl (3.5-5.0); Alkaline Phosphatase 40 U/L (38-126); Blood Urea Nitrogen 7 mg/dl (7-17); Carbon Dioxide 21 mmol/L (22-30); Chloride 113 mmol/L (98-107); Estimated Creatinine Clearance 113 ml/min; Glucose 87 mg/dl (70-99); Magnesium 1.9 mg/dl (1.6-2.3); Potassium 4.5 mmol/L (3.5-5.1); Sodium 139 mmol/L (135-145); Total Bilirubin 0.6 mg/dl (0.2-1.3); Total Protein 5.6 g/dl (6.3-8.2); eGFR > 60.00
[2024-08-25 15:43] VITALS: BP 119/64
--- NOTE | 2024-08-25 15:51 | W.PN.HOSP.TC ---
Addendum entered and electronically signed by Daniel Nelson MD 08/25/24 21:18:
Attending Addendum:
I saw and evaluated the patient. I reviewed the resident�s note and agree with findings and plan as documented in the resident�s note. Sub: has had minimal blood in stool today. Requesting to go home and follow up as OP. no fevers chills NV. villa PO
Full 12 point ROS reviewed and negative except as documented Exam: Vitals reviewed in chart GEN-NAD heart RRR lungs clear abd soft LE no edema
Plan:
#Abdominal pain, hematochezia, diarrhea
Repeat stool Cx, C.diff, WBC, calprotectin-P f/u as OP
GI consult appreciated
PPI
DC abx
OP colon for possible abx associated diarrhea vs IBD
#Transaminitis
-trending down
DVT ppx SCDs (2/2 hematochezia)
Full code
Time spent coordinating care, DC planning, review of DC plan of care with resident, transition of care, review of records, med rec/scripts sent electronically, consults, notes, d/w consultants, nursing, GI and CM� 31 mins
Original Note:
Today's Communication/Plan
-
Plan for colonoscopy tomorrow
Continue IV fluids
Assessment / Plan
Assessment / Plan
Impression
29-year-old female with no significant past medical history presenting with hematochezia, lightheadedness and tachycardia.
Plan
#Hematochezia, abdominal pain, diarrhea
Likely inflammatory versus infectious versus ischemic
Lactate normal, normal white count, patient afebrile.
Patient had a recent admission for infectious enteritis, discharged on levofloxacin, Flagyl
Repeat stool culture pending
Repeat C. difficile negative
Calprotectin pending
CRP was 22.9 on 08/20/2024
X-ray abdomen�no evidence of obstruction/no free air.
GI consulted
PPI
Levofloxacin/Flagyl discontinued
GI�plan on colonoscopy tomorrow
Clears for now, advance as tolerated, n.p.o. from midnight
Monitor CBC
#Transaminitis
Mildly elevated transaminases
Likely due to dehydration
Will follow
#DVT prophylaxis�SCDs
Full code
Anticipated Discharge: Within 24 hours
Subjective/Interval History
-
Date of Service: August 25, 2024
Patient reports that her abdominal pain, nausea/vomiting has improved. States that she had hematochezia in the morning.
Objective Data
-
Labs:
Laboratory Results
08/25/24
06:43
WBC 7.6
Hgb 13.0
Hct 36.8 L
Plt Count 294
Sodium 139
Potassium 4.5
Chloride 113 H
Carbon Dioxide 21 L
BUN 7
Creatinine 0.7
Glucose 87
Calcium 9.0
Total Bilirubin 0.6
AST 31
ALT 38 H
Alkaline Phosphatase 40
Vital Signs:
Vital Signs
Temp Pulse Resp BP Pulse Ox
98.6 F 54 14 119/64 99
08/25/24 15:43 08/25/24 15:43 08/25/24 15:43 08/25/24 15:43 08/25/24 15:43
I&O
08/24/24 08/25/24 08/26/24
06:59 06:59 06:59
Intake Total 480 / 480
Balance 480 / 480
Physical Exam
-
General: Well Developed, Well Nourished and No Apparent Distress
HEENT: Normocephalic and Atraumatic
Respiratory: Clear to Auscultation
Cardiac: Regular Rhythm and S1/S2
GI: Soft, Nontender, Nondistended and Normal Bowel Sounds
Skin: Warm and Dry
Neuro: Awake, Alert, Oriented and AO x 3
--- NOTE | 2024-08-25 15:58 | W.PN.GI.CBS2 ---
Today's Communication / Plan
-
LRD and ok for DC if tolerates
Assessment / Plan
-
1. Diarrhea with rectal bleeding with recent admission for enteritis was treated with antibiotics pending stool cultures for presumed infectious enteritis. The cultures subsequently did come back negative and stool was negative for C. difficile
during that admission, repeat C. difficile this admission also negative. Her hemoglobin is stable. Her CRP was 22.9 on 08/20/2024. Worsening symptoms of diarrhea post DC could have been antibiotic associated diarrhea. Levaquin and Flagyl was
discontinued since admission and symptoms are improving continue probiotics. Will advance diet to low residue diet and if she tolerates it okay for DC home for colonoscopy in next 2 to 4 weeks to rule out possible Crohn's ileitis. If she does have
recurrent symptoms after DC she will call us and will schedule her for colonoscopy next week as OP. They are improving
Mildly elevated AST and ALT, her AST and ALT during her recent admission on 08/19/2024 were normal it may be related to dehydration and low flow state. They are trending down
Subjective
Subjective
Date of Service: August 25, 2024
Diarrhea improved today and slightly more formed stool, very minimal abdominal pain, she did have 1 episode of vomiting earlier in the morning
Objective
Data Reviewed
Laboratory Data:
Laboratory Results
08/25/24 06:43
08/25/24 06:43
Laboratory Results
Magnesium 1.9 mg/dl (1.6-2.3) 08/25/24 06:43
Total Bilirubin 0.6 mg/dl (0.2-1.3) 08/25/24 06:43
AST 31 U/L (14-36) 08/25/24 06:43
ALT 38 U/L (0-35) H 08/25/24 06:43
Alkaline Phosphatase 40 U/L (38-126) 08/25/24 06:43
Vital Signs and I&O:
Vital Signs
Temp Pulse Resp BP Pulse Ox
98.6 F 54 14 119/64 99
08/25/24 15:43 08/25/24 15:43 08/25/24 15:43 08/25/24 15:43 08/25/24 15:43
I&O
08/24/24 08/25/24 08/26/24
06:59 06:59 06:59
Intake Total 480 / 480
Balance 480 / 480
Physical Exam
Physical Exam
Cardiology: Normal Sinus Rhythm
Pulmonary: Clear
GI: Soft, Non Distended, Non Tender and Normal Bowel Sounds
== END 2024-08-25 17:35 | disposition home or self-care (01) | DRG 379 ==
LOC: 4 WEST ACU 16:28
PROVIDERS: Student in an Organized Health Care Education/Training Program; ADMITTING PHYSICIAN Internal Medicine; ATTENDING PHYSICIAN Family Medicine; CONSULT PHYSICIAN Internal Medicine Gastroenterology; EMERGENCY PHYSICIAN Emergency Medicine; FAMILY PHYSICIAN Internal Medicine
DX: K92.1 Melena (principal); K52.9 Noninfective gastroenteritis and colitis, unspecified; R74.01 Elevation of levels of liver transaminase levels
CPT/HCPCS: 74022; 80053; 83735; 83993; 84703; 85025; 87045; 87046; 87324; 87427; 87449; 89055; 93005; 96374; 99285

== ENCOUNTER 2024-09-02 06:22 | Day surgery (SDC) | payer OTHER, SELFPAY | END 2024-09-02 08:54 | disposition home or self-care (01) | LOC: GI 06:22 | PROVIDERS: ATTENDING PHYSICIAN Internal Medicine Gastroenterology | DX: R93.3 Abnormal findings on diagnostic imaging of other parts of digestive tract (principal); R19.4 Change in bowel habit | CPT/HCPCS: 45380; 88305 ==